=== PATIENT | male | born 1975 | race Caucasian/White ===

== ENCOUNTER 2018-03-26 22:56 | Emergency (ER) | payer MEDICAID ==
[~2018-03-26] VITALS: Ht 188 cm; Wt 105.7 kg
[2018-03-26 23:58] VITALS: BP 136/71
[2018-03-27] MEDS ORDERED: FLUORESCEIN SODIUM OPHTH 1 EA STRIP ONE (01:40)
[2018-03-27] MEDS ORDERED: TETRACAINE HCL/PF 0.5% UD 2 ML BOTTLE ONE (01:40)
[2018-03-27] MEDS ORDERED: IV NS 0.9% 1,000 ML BAG IV ONE (02:00)
--- NOTE | 2018-03-27 02:15 | NUR ---
CLAUDIA LENSE INSERTED INTO R EYE TO FLUSH WITH NS.
== END 2018-03-27 02:44 | disposition home or self-care (01) ==
LOC: ER 23:00
DX: S05.01XA Injury of conjunctiva and corneal abrasion without foreign body, right eye, initial encounter (principal); X58.XXXA Exposure to other specified factors, initial encounter; Y93.89 Activity, other specified; Y92.89 Other specified places as the place of occurrence of the external cause; Y99.0 Civilian activity done for income or pay
CPT/HCPCS: 99284; A4606; J7030; Z7610